=== PATIENT | male | born 1990 | race Caucasian/White ===

== ENCOUNTER → 2024-07-20 | Outpatient (BNVA) | payer BC, SELFPAY | END | disposition home or self-care (01) | PROVIDERS: PCP Family Medicine; Referring Provider Family Medicine; Visit Provider Urology | DX: N46.9 Male infertility, unspecified (principal); N40.0 Benign prostatic hyperplasia without lower urinary tract symptoms; F33.1 Major depressive disorder, recurrent, moderate; J45.909 Unspecified asthma, uncomplicated | CPT/HCPCS: 81003; 99212; G0463 ==